=== PATIENT | female | born 1995 | race Caucasian/White ===

== ENCOUNTER 2019-09-07 20:12 | Emergency (ER) | payer OTHER ==
[~2019-09-07] VITALS: Ht 167.6 cm; Wt 90.9 kg
[2019-09-07] MEDS ORDERED: PRENA1 CHEW1 CT1 PO (20:54)
--- NOTE | 2019-09-07 22:19 | NUR ---
fhr wnl. baseline 140 bpm. accels present . no decels or uterine activity noted. abdomen soft to palpate
[2019-09-07 23:15] VITALS: BP 130/68; PULSE 98; TEMP 98.4
== END 2019-09-07 23:16 | disposition home or self-care (01) ==
LOC: COL.ER 20:12
DX: O9A.213 Injury, poisoning and certain other consequences of external causes complicating pregnancy, third trimester (principal); S93.602A Unspecified sprain of left foot, initial encounter; R40.2412 Glasgow coma scale score 13-15, at arrival to emergency department; Z3A.32 32 weeks gestation of pregnancy; W01.0XXA Fall on same level from slipping, tripping and stumbling without subsequent striking against object, initial encounter; Y93.41 Activity, dancing
CPT/HCPCS: Q4045